=== PATIENT | male | born 1970 | race Caucasian/White ===

== ENCOUNTER 2021-02-08 15:49 | Emergency (ER) | payer OTHER, SELFPAY ==
--- NOTE | ~2021-02-08 | XR_ITS ---
EXAMINATION: XR chest 2V EXAM DATE: 02/08/2021 16:15 INDICATION: Cough , loss of taste and smell. TECHNIQUE: Frontal and lateral projections of the chest obtained and reviewed. There is no prior manuela dy for comparison. FINDINGS: The lungs are clear. There are no pleural effusions. The cardiomediastinal silhouette is within normal limits. There is no pneumothorax suspected. Upper abdominal surgical clips. There are no osseous abnormalities identified. IMPRESSION: No acute cardiopulmonary findings. Reviewed, dictated and finalized at location B.
--- NOTE | 2021-02-08 15:52 | ED.URI ---
HPI - URI/Sore Throat General Chief Complaint: Upper Respiratory Infection Stated Complaint: has Covid and says chest x ray Time Seen by Provider: 02/08/21 16:00 Source: patient and RN notes reviewed History of Present Illness HPI Narrative: Patient is a 50-year-old male that presents the urgent care with complaints of Covid symptoms for the last 7 days. States that he has had a mild cough, body aches, fatigue, fever and lost of smell and taste. Patient states the symptoms started 7 days ago and his was also symptomatic for Covid. Patient has been taking [id number] Mucinex and multivitamins. Denies of any chest pain or shortness of breath. No other acute complaints. No acute distress noted. Patient aware of the plan of care. Some parts of this dictation were generated by voice recognition software and may contain typographical and/or grammatical inaccuracies. Related Data Allergies Allergy/AdvReac Type Severity Reaction Status Date / Time No Known Allergies Allergy Verified 02/08/21 16:09 Review of Systems Review of Systems: CONSTITUTIONAL: Reports a fever and fatigue EYES: Denies visual changes, redness, or discharge. ENT: Denies rhinorrhea, congestion, sore throat, or otalgia. CARDIOVASCULAR: Denies chest pain, palpitations, or edema. RESPIRATORY: Reports of chest congestion and cough without dyspnea GASTROINTESTINAL: Denies abdominal pain, nausea, vomiting, or diarrhea. GENITOURINARY: Denies dysuria or hematuria. SKIN: Denies rash or itching. MUSCULOSKELETAL: Denies back pain, joint pain. Reports of body aches NEUROLOGIC: Denies headache, numbness, or weakness. All other systems reviewed are negative, except as documented in HPI. PMFSH Comments At the time of my signature, I reviewed and agree with the nursing past medical, surgical, social, and family history. There is no relevant family history pertinent to the patient complaint. Exam Narrative: GENERAL: This is a well-nourished, well-developed patient, in no apparent distress. HEAD: normocephalic, atraumatic. EYES: PERRL. Sclera clear/white. Vision is grossly intact. EARS: External ears normal, auditory canals clear and without drainage, TMs normal without perforation. Hearing grossly intact. NOSE: External nose normal with no obvious nasal discharge, nares without redness, no rhinorrhea. THROAT: Mucous membranes moist, posterior pharynx clear. Mild postnasal drainage NECK: Neck supple CARDIOVASCULAR: Regular rate and rhythm without murmurs, gallops, or rubs. RESPIRATORY: Clear to auscultation. Breath sounds equal bilaterally. No wheezes, rales, or rhonchi. SKIN: warm, intact with no suspicious lesions or rash, good texture and turgor. NEURO: awake, alert, and oriented to person, place and time. There were no obvious focal neurologic abnormalities. EXTREMITIES: No clubbing, cyanosis, or edema. Course Vital Signs Vital signs: Vital Signs Temperature 98.0 F 02/08/21 16:00 Pulse Rate 90 02/08/21 16:00 Respiratory Rate 20 02/08/21 16:00 Blood Pressure 173/102 H 02/08/21 16:00 Pulse Oximetry 97 02/08/21 16:00 Temperature 98.0 F 02/08/21 16:00 Pulse Rate 90 02/08/21 16:00 Respiratory Rate 20 02/08/21 16:00 Blood Pressure 173/102 H 02/08/21 16:00 Pulse Oximetry 97 02/08/21 16:00 Reviewed-patient is informed that they may have pre-hypertension or hypertension based on a blood pressure reading in the department. I recommend the patient call the primary care provider listed on their discharge instructions or a physician of their choice this week to arrange follow-up for further evaluation of possible pre-hypertension or hypertension. MDM - URI/Sore Throat MDM Narrative Medical decision making narrative: Reviewed lab results with the patient. He is aware that his rapid Covid test was positive. Chest x-ray was negative for bacterial or viral pneumonia. Advised the patient to complete the steroid regimen as prescribed.
[2021-02-08 16:00] VITALS: BP 173/102; PULSE 90; RESP 20; TEMP 36.7; O2SAT 97
== END 2021-02-08 16:35 | disposition home or self-care (01) ==
PROVIDERS: Emergency Provider Nurse Practitioner Family; PCP Family Medicine
DX: U07.1 COVID-19 (principal)
CPT/HCPCS: 71046; 87426; 99213; C9803; G0463